=== PATIENT | female | born 1990 | race Caucasian/White ===

== ENCOUNTER 2018-10-15 21:18 | Outpatient (REF) | payer BC, SELFPAY ==
[2018-10-15 21:51] LABS: Abs Immature Grans 0.01 k/cumm (0.0-0.09); Absolute Basophil Count 0.04 k/cumm (0.0-0.2); Absolute Eosinophil Count 0.23 k/cumm (0.0-0.7); Absolute Lymphocyte Count 2.38 k/cumm (1.2-3.4); Absolute Monocyte Count 0.65 k/cumm (0.11-0.7); Absolute Neutrophil Count 3.97 k/cumm (1.2-6.7); Basophils % 0.5; Eosinophils % 3.2; HCT 40.2 % (36.0-46.0); HGB 13.8 g/dL (12.0-15.5); Immature Grans % 0.1; Lymphocytes % 32.7; Mean Corp. HGB Concentration 34.3 g/dL (32.0-36.0); Mean Corpuscular Hemoglobin 30.7 pg (27.0-33.0); Mean Corpuscular Volume 89.3 fL (80-95); Mean Platelet Volume 11.2 fL (8.0-11.0); Monocytes % 8.9; Neutrophils % 54.6; Platelet Count 239 x1000/uL (130-400); RBC Distribution Width 12.4 % (11.7-14.6); White Blood Cell Count 7.28 k/cumm (4.4-10.8)
[2018-10-15 22:30] LABS: Anion Gap 8.8 mmol/L (3-11); BUN 9 mg/dL (7-18); CO2 29.2 mmol/L (21.0-32.0); Calcium 9.5 mg/dL (8.5-10.1); Chloride 103 mmol/L (98-107); Glucose 90 mg/dL (70-100); Potassium 4.3 mmol/L (3.5-5.1); Sodium 141 mmol/L (136-145); TSH (W/Ref FT4) 1.01 uIU/mL (0.358-3.74)
== END 2018-10-15 21:38 ==
LOC: NCHCN 21:18
PROVIDERS: PCP Nurse Practitioner Family; Visit Provider Nurse Practitioner Family
DX: F33.0 Major depressive disorder, recurrent, mild (principal); F41.1 Generalized anxiety disorder
CPT/HCPCS: 80048; 84443; 85025

== ENCOUNTER 2018-11-05 18:27 | Outpatient (REF) | payer BC, SELFPAY ==
--- NOTE | 2018-11-05 18:00 | PAPFT_PTH ---
PATIENT: Rosie Ramirez LOC: [facility] U#:[id number] AGE/SX: 28/F ROOM: RE11/05/[address]: Francesca Sims : 1990 BED: DIS: 11/05/2018 SPEC #: [id number] RECD: 11/06/18 13:00 STATUS: BHASKAR BUCHANAN #: [id number] KATALINA: 11/05/18 18:[address]: Francesca Sims DEPT: [facility] Cytology RECD BY: Lotus Garcia Tissues: 1 - CX/ENDOCX FOR PAP SMEARS Procedures: PAP THIN PREP/[facility] Screening Comments: [id number] (CHLAMYDIA/GC)
[2018-11-07 14:30] LABS: Chlamydia Result Negative; GC Result Negative; Specimen Description SEE COMMENTS
== END 2018-11-05 18:47 ==
LOC: NCHCN 18:27
PROVIDERS: PCP Nurse Practitioner Family; Visit Provider Nurse Practitioner Family
DX: Z00.00 Encounter for general adult medical examination without abnormal findings (principal); Z11.3 Encounter for screening for infections with a predominantly sexual mode of transmission; Z12.4 Encounter for screening for malignant neoplasm of cervix
CPT/HCPCS: 87491; 87591; 88142

== ENCOUNTER 2020-08-01 09:17 | Outpatient (REF) | payer BC, SELFPAY ==
[2020-08-01 21:44] LABS: Anion Gap 6.9 mmol/L (3-11); BUN 8 mg/dL (7-18); CO2 27.1 mmol/L (21.0-32.0); CREATININE 0.62 mg/dL (0.55-1.02); Calculated LDL 77 mg/dL (<100); Chloride 107 mmol/L (98-107); Cholesterol 147 mg/dL (<200); Glucose 93 mg/dL (74-106); HDL Cholesterol 58 mg/dL (40-60); Potassium 4.4 mmol/L (3.5-5.1); Sodium 141 mmol/L (136-145); Triglyceride 62 mg/dL (<150)
== END 2020-08-01 09:37 ==
LOC: NCHCN 09:17
PROVIDERS: PCP Nurse Practitioner Family; Visit Provider Nurse Practitioner Family
DX: Z00.00 Encounter for general adult medical examination without abnormal findings (principal); Z13.220 Encounter for screening for lipoid disorders; Z13.228 Encounter for screening for other metabolic disorders
CPT/HCPCS: 80048; 80061

== ENCOUNTER 2022-07-02 11:02 | Outpatient (REF) | payer BC, SELFPAY ==
--- NOTE | 2022-07-02 10:45 | PAPFT_PTH ---
PATIENT: Rosie Ramirez LOC: [facility] U#:[id number] AGE/SX: 31/F ROOM: RE07/02/[address]: Francesca Sims : 1990 BED: DIS: 07/02/2022 SPEC #: [id number] RECD: 07/02/22 17:02 STATUS: BHASKAR BUCHANAN #: [id number] KATALINA: 07/02/22 10:[address]: Francesca Sims DEPT: [facility] Cytology RECD BY: Lotus Garcia Tissues: 1 - CX/ENDOCX FOR PAP SMEARS Procedures: PAP THIN PREP/[facility] Screening HPV DNA PROBE Comments: [id number] (CHLAMYDIA/GC)
[2022-07-03 14:45] LABS: Chlamydia Result Negative (Negative); GC Result Negative (Negative)
== END 2022-07-02 11:03 | disposition home or self-care (01) ==
LOC: NCHCN 11:02
PROVIDERS: PCP Nurse Practitioner Family; Visit Provider Nurse Practitioner Family
DX: Z12.4 Encounter for screening for malignant neoplasm of cervix (principal); Z11.51 Encounter for screening for human papillomavirus (HPV); Z11.3 Encounter for screening for infections with a predominantly sexual mode of transmission
CPT/HCPCS: 87491; 87591; 88142; 87624

== ENCOUNTER 2022-08-15 19:04 | Outpatient (REF) | payer BC, SELFPAY ==
[2022-08-15 15:58] LABS: Anion Gap 6.4 mmol/L (3-11); BUN 10 mg/dL (7-18); CO2 28.6 mmol/L (21.0-32.0); CREATININE 0.6 mg/dL (0.55-1.02); Calcium 8.7 mg/dL (8.5-10.1); Calculated LDL 82 mg/dL (<100); Chloride 105 mmol/L (98-107); Cholesterol 140 mg/dL (<200); Estimated GFR 122.23 (mL/min/1.73m2); Glucose 81 mg/dL (74-106); HDL Cholesterol 49 mg/dL (40-60); Magnesium 1.8 mg/dL (1.8-2.4); Potassium 4.5 mmol/L (3.5-5.1); Sodium 140 mmol/L (136-145); Triglyceride 45 mg/dL (<150)
== END 2022-08-15 19:05 | disposition home or self-care (01) ==
LOC: NCHCN 19:04
PROVIDERS: PCP Nurse Practitioner Family; Visit Provider Nurse Practitioner Family
DX: Z51.81 Encounter for therapeutic drug level monitoring (principal)
CPT/HCPCS: 80048; 80061; 83735

== ENCOUNTER 2023-01-10 16:55 | Outpatient (REF) | payer BC, SELFPAY | END 2023-01-10 16:56 | disposition home or self-care (01) | LOC: NCHCN 16:55 | PROVIDERS: PCP Nurse Practitioner Family; Visit Provider Family Medicine | DX: L29.8 Other pruritus (principal) | CPT/HCPCS: 83520 ==

== ENCOUNTER 2023-04-01 04:57 | Outpatient (CLI) | payer BC, SELFPAY ==
[2023-04-01 13:30] LABS: HCG Qual (Urine) Negative
[2023-04-01 14:32] LABS: TSH 1.02 uIU/mL (0.36-3.74)
[2023-04-02 10:18] LABS: Hepatitis B Surface Ag Negative (Negative)
[2023-04-02 10:49] LABS: HIV-1/2 Ag & Ab Screen Negative (Negative)
[2023-04-02 10:51] LABS: Hep B Core Antibody Negative (Negative)
[2023-04-02 11:12] LABS: Syphilis Serology (RPR) Negative (Negative)
[2023-04-03 09:46] LABS: Antimullerian Hormone 2.6 ng/mL (0.58-8.1)
== END 2023-04-01 04:58 | disposition home or self-care (01) ==
PROVIDERS: PCP Family Medicine; Visit Provider Family Medicine
DX: Z31.89 Encounter for other procreative management (principal)
CPT/HCPCS: 36415; 86704; 86900; 86901; 87340; 87389; 81025; 83520; 84443; 86592